=== PATIENT | male | born 1995 | race Caucasian/White ===

== ENCOUNTER 2018-02-06 09:37 | Day surgery (SDC) | payer SELFPAY ==
[2018-02-06] MEDS: Ondansetron 4 MG/2 ML SDV IVPUSH ONE ×2 (10:09→11:20)
[2018-02-06] MEDS: HYDROmorphone 1 MG/ML Syringe IVPUSH ONE (11:16)
[2018-02-06] MEDS: Lactated Ringers 1,000 ML IV ONE ×2 (11:21→14:02)
[2018-02-06] MEDS: Sodium Chloride 0.9% 10 ML Syringe FLUSH PRN ×2 (11:21→12:35)
--- NOTE | 2018-02-06 11:51 | EDM.PDOC ---
ED HPI GENERAL MEDICAL PROBLEM - General Chief Complaint: Abdominal Pain Stated Complaint: ABDOMINAL PAIN Time Seen by Provider: 02/06/18 11:02 Source of Information: Reports: Patient History Limitations: Reports: No Limitations - History of Present Illness INITIAL COMMENTS - FREE TEXT/NARRATIVE: 22-year-old male presents for evaluation and treatment of abdominal pain. Patient is in moderate distress upon my arrival to the room and is difficult to obtain a history and physical from him. He reports that the abdominal pain started around 0300 this morning. He was awake and it did not wake him up from sleep. He reports pain in the right lower quadrant. Reports associated symptoms of nausea and vomiting. He denies any diarrhea. Denies any urinary symptoms. No previous surgeries to his abdomen. Onset: Today Location: Reports: Abdomen (RLQ) Right Lower Abdominal Pain Score (Numeric/FACES): 10 - Related Data Allergies Allergy/AdvReac Type Severity Reaction Status Date / Time No Known Allergies Allergy Verified 02/06/18 09:52 Home Meds: Home Meds . [No Known Home Meds] 02/06/18 [History] Past Medical History - Past Surgical History HEENT Surgical History: Reports: Myringotomy w Tube(s) Social & Family History - Tobacco Use Smoking Status *Q: Current Every Day Smoker Years of Tobacco use: 1 Packs/Tins Daily: 1 - Caffeine Use Caffeine Use: Reports: None - Recreational Drug Use Recreational Drug Use: No ED ROS GENERAL - Review of Systems Review Of Systems: See Below GI/Abdominal: Reports: Abdominal Pain (RLQ), Nausea, Vomiting. Denies: Diarrhea : Reports: No Symptoms ED EXAM, GI/ABD - Physical Exam Exam: See Below Exam Limited By: No Limitations General Appearance: Alert, WD/WN, Moderate Distress, Thin Throat/Mouth: Normal Inspection, Normal Voice, No Airway Compromise Neck: Normal Inspection Respiratory/Chest: No Respiratory Distress, Lungs Clear, Normal Breath Sounds Cardiovascular: Normal Peripheral Pulses, Regular Rate, Rhythm, No Murmur GI/Abdominal Exam: Tender (right side of abdomen RLQ > RUQ), Other (pain with heel percussion; unable to fully examine patient due to significant pain; negative rosvings sign) Neurological: Alert, Oriented, Normal Cognition Psychiatric: Normal Affect, Anxious Skin Exam: Warm, Dry, Normal Color Course - Vital Signs Last Recorded V/S: Last Vital Signs Temp 99.2 F 02/06/18 18:30 Pulse 86 02/06/18 18:30 Resp 16 02/06/18 18:30 BP 119/68 02/06/18 18:30 Pulse Ox 98 02/06/18 18:30 - Orders/Labs/Meds Orders: Active Orders 24 hr Category Date Time Status Patient Status [ADT] Routine ADT 02/06/18 14:18 Active Communication Order [RC] ROUTINE Care 02/06/18 15:31 Active Cooling Warming Measures [RC] ASDIRECTED Care 02/06/18 15:31 Active Notify Provider [RC] ASDIRECTED Care 02/06/18 15:31 Active Oxygen Therapy [RC] ASDIRECTED Care 02/06/18 15:31 Active Pulse Oximetry [RC] ASDIRECTED Care 02/06/18 15:31 Active Vital Signs [RC] Q15M Care 02/06/18 15:31 Active Abdomen Pelvis w Cont [CT] Stat Exams 02/06/18 11:10 Taken UA W/MICROSCOPIC [URIN] Stat Lab 02/06/18 10:48 Ordered Saline Lock Insert [OM.PC] Routine Oth 02/06/18 10:51 Ordered Schedule Procedure [COMM] Stat Oth 02/06/18 14:17 Ordered Labs: Laboratory Tests 02/06/18 02/06/18 Range/Units 10:20 10:20 WBC 17.85 H (4.23-9.07) K/mm3 RBC 5.05 (4.63-6.08) M/mm3 Hgb 16.4 (13.7-17.5) gm/L Hct 45.1 (40.1-51.0) % MCV 89.3 (79.0-92.2) fl MCH 32.5 H (25.7-32.2) pg MCHC 36.4 H (32.2-35.5) g/dl RDW Std Deviation 35.8 (35.1-43.9) fL Plt Count 295 (163-337) K/mm3 MPV 10.5 (9.4-12.3) fl Neutrophils % (Manual) 81 H (40-60) % Band Neutrophils % 0 (0-10) % Lymphocytes % (Manual) 14 L (20-40) % Atypical Lymphs % 0 % Monocytes % (Manual) 4 (2-10) % Eosinophils % (Manual) 1 (0.8-7.0) % Basophils % (Manual) 0 L (0.2-1.2) Platelet Estimate Adequate RBC Morph Comment Normal Sodium 137 (136-145) mEq/L Potassium 4.3 (3.5-5.1) mEq/L Chloride 97 L (98-107) mEq/L Carbon Dioxide 23 (21-32) mEq/L Anion Gap 21.3 H (5-15) BUN 28 H (7-18) mg/dL Creatinine 1.2 (0.7-1.3) mg/dL Est Cr Clr Drug Dosing 81.22 mL/min Estimated GFR (MDRD) > 60 (>60) mL/min BUN/Creatinine Ratio 23.3 H (14-18) Glucose 133 H (74-106) mg/dL Calcium 10.5 H (8.5-10.1) mg/dL Total Bilirubin 1.9 H (0.2-1.0) mg/dL AST 37 (15-37) U/L ALT 24 (16-63) U/L Alkaline Phosphatase 86 (46-116) U/L C-Reactive Protein 1.7 H* (<1.0) mg/dL Total Protein 9.2 H (6.4-8.2) g/dl Albumin 5.3 H (3.4-5.0) g/dl Globulin 3.9 gm/dL Albumin/Globulin Ratio 1.4 (1-2) Meds: Medications Discontinued Medications Generic Name Dose Route Start Last Admin Trade Name Freq PRN Reason Stop Dose Admin Dexamethasone Confirm 02/06/18 15:07 Dexamethasone Administered 02/06/18 15:08 Dose 20 mg .ROUTE .STK-MED ONE Diatrizoate Meglum/Diatrizoate Sod 120 ml 02/06/18 11:40 02/06/18 12:35 Gastrografin 37% PO 02/06/18 11:41 90 ml ONETIME ONE Administration Fentanyl Confirm 02/06/18 14:19 Sublimaze Administered 02/06/18 14:20 Dose 250 mcg .ROUTE .STK-MED ONE Fentanyl 50 mcg 02/06/18 15:31 Sublimaze IVPUSH Q5M PRN Pain Hydromorphone HCl 1 mg 02/06/18 11:10 02/06/18 11:16 Dilaudid IVPUSH 02/06/18 11:11 1 mg ONETIME ONE Administration Hydromorphone HCl 0.5 mg 02/06/18 15:31 Dilaudid IVPUSH Q15M PRN Pain Lactated Ringer's 1,000 mls @ 999 mls/hr 02/06/18 11:11 02/06/18 11:21 Ringers, Lactated IV 02/06/18 12:11 999 mls/hr .BOLUS ONE Administration Ertapenem 1 gm/ Sodium 100 mls @ 200 mls/hr 02/06/18 13:25 02/06/18 14:02 Chloride IV 02/06/18 13:54 200 mls/hr ONETIME ONE Administration Lactated Ringer's 1,000 mls @ 150 mls/hr 02/06/18 13:30 02/06/18 14:02 Ringers, Lactated IV 02/06/18 20:09 150 mls/hr .BOLUS ONE Administration Lidocaine HCl Confirm 02/06/18 15:13 Xylocaine-Mpf 1% Administered 02/06/18 15:14 Dose 4 mls @ as directed .ROUTE .STK-MED ONE Lactated Ringer's Confirm 02/06/18 15:14 Ringers, Lactated Administered 02/06/18 15:15 Dose 1,000 mls @ as directed .ROUTE .STK-MED ONE Acetaminophen 65 mls @ 400 mls/hr 02/06/18 16:23 02/06/18 16:40 Ofirmev IV 02/06/18 16:32 400 mls/hr ONETIME ONE Administration Iopamidol 100 ml 02/06/18 11:40 02/06/18 12:34 Isovue-300 (61%) IVPUSH 02/06/18 11:41 80 ml ONETIME ONE Administration Lidocaine HCl Confirm 02/06/18 14:04 02/06/18 15:04 Xylocaine-Mpf 1% Administered 02/06/18 14:05 16 ml Dose Administration 30 ml .ROUTE .STK-MED ONE Lorazepam 0.5 mg 02/06/18 14:00 02/06/18 14:15 Ativan IVPUSH 02/06/18 14:01 0.5 mg ONETIME ONE Administration Midazolam HCl Confirm 02/06/18 14:19 Versed 1 Mg/Ml Administered 02/06/18 14:20 Dose 2 mg .ROUTE .STK-MED ONE Midazolam HCl 2 mg 02/06/18 15:31 Versed 1 Mg/Ml IVPUSH ONETIME PRN Sedation Ondansetron HCl 4 mg 02/06/18 10:04 02/06/18 10:09 Zofran IVPUSH 02/06/18 10:05 4 mg ONETIME ONE Administration Ondansetron HCl 4 mg 02/06/18 11:10 02/06/18 11:20 Zofran IVPUSH 02/06/18 11:11 4 mg ONETIME ONE Administration Ondansetron HCl Confirm 02/06/18 15:07 Zofran Administered 02/06/18 15:08 Dose 8 mg .ROUTE .STK-MED ONE Propofol Confirm 02/06/18 14:18 Diprivan 20 Ml Administered 02/06/18 14:19 Dose 200 mg .ROUTE .STK-MED ONE Rocuronium Randolph Confirm 02/06/18 14:18 Zemuron Administered 02/06/18 14:19 Dose 50 mg .ROUTE .STK-MED ONE Sodium Chloride 10 ml 02/06/18 10:51 02/06/18 11:21 Saline Flush FLUSH 10 ml ASDIRECTED PRN Administration Keep Vein Open Sodium Chloride 10 ml 02/06/18 11:40 02/06/18 12:35 Saline Flush FLUSH 10 ml ONETIME PRN Administration IV FLUSH Succinylcholine Chloride Confirm 02/06/18 14:21 Succinylcholine In Ns Pf Administered 02/06/18 14:22 Dose 100 mg .ROUTE .STK-MED ONE Sugammadex Sodium 200 mg 02/06/18 15:28 Bridion IV 02/06/18 15:29 ASDIRECTED ONE Sugammadex Sodium Confirm 02/06/18 15:32 02/06/18 15:30 Bridion Administered 02/06/18 15:33 100 mg Dose Administration 500 mg .ROUTE .STK-MED ONE - Radiology Interpretation Free Text/Narrative:: CT of the abdomen and pelvis with IV and oral contrast impression per vrad: The appendix demonstrates diffuse distention, consistent with acute appendicitis - Re-Assessments/Exams Free Text/Narrative Re-Assessment/Exam: 02/06/18 11:34 Standing orders were placed prior to me seeing the patient. White blood cell count elevated at 17. No relief with the Zofran. An additional 4 mg of Zofran was ordered along with 1 mg Dilaudid. Will obtain CT of the abdomen and pelvis with IV and oral contrast rule out appy. 02/06/18 13:[address] Lucas, surgeon juvenile correctional officer. She is in the ED for another patient. Reviewed the CT scan. Formal radiology read is still pending but does appear that he has appendicitis with a fecalith. Will need a lap appendectomy for further management. 02/06/18 14:00 Patient is very anxious. Will give 0.5 Ativan at this time. Departure - Departure Time of Disposition: 14:20 Disposition: DC/Tfer to [facility] Condition: Fair Clinical Impression: Acute appendicitis, uncomplicated - Discharge Information *PRESCRIPTION DRUG MONITORING PROGRAM REVIEWED*: No *COPY OF PRESCRIPTION DRUG MONITORING REPORT IN PATIENT ANDREIA: No - My Orders Last 24 Hours: My Active Orders 02/06/18 10:48 UA W/MICROSCOPIC [URIN] Stat 02/06/18 10:51 Saline Lock Insert [OM.PC] Routine 02/06/18 11:10 Abdomen Pelvis w Cont [CT] Stat - Assessment/Plan Last 24 Hours: My Active Orders 02/06/18 10:48 UA W/MICROSCOPIC [URIN] Stat 02/06/18 10:51 Saline Lock Insert [OM.PC] Routine 02/06/18 11:10 Abdomen Pelvis w Cont [CT] Stat
[2018-02-06] MEDS: Iopamidol 612 MG/ML 100 ML Bottle IVPUSH ONE (12:34)
[2018-02-06] MEDS: Diatrizoate Meglumine/Diatrizoate Sodium 37% 120 ML Bottle PO ONE (12:35)
[2018-02-06] MEDS: Ertapenem 1 GM in Sodium Chloride 0.9% 100 ML IV ONE (14:02)
--- NOTE | 2018-02-06 14:13 | PCM.PREANE ---
Preanesthetic Assessment - Procedure Proposed Procedure: Laparoscopic Appendectomy - Anesthesia/Transfusion/Family Hx Anesthesia History: Prior Anesthesia Without Reaction Transfusion History: No Prior Transfusion(s) - Review of Systems General: No Symptoms Pulmonary: No Symptoms Cardiovascular: No Symptoms Gastrointestinal: No Symptoms Neurological: No Symptoms Other: Reports: None - Physical Assessment NPO Status Date: 02/06/18 NPO Status Time: 08:30 Pulse: 98 O2 Sat by Pulse Oximetry: 100 Respiratory Rate: 18 Blood Pressure: 125/80 Temperature: 98 F Vital Signs: Last Vital Signs Temp 98.0 F 02/06/18 09:50 Pulse 83 02/06/18 09:50 Resp 18 02/06/18 09:50 BP 125/80 02/06/18 09:50 Pulse Ox 100 02/06/18 09:50 Height: 1.65 m Weight: 58.967 kg ASA Class: 2E Mental Status: Alert & Oriented x3 Airway Class: Mallampati = 1 Dentition: Reports: [place](s) (front incisors) Thyro-Mental Finger Breadths: 3 Mouth Opening Finger Breadths: 3 ROM/Head Extension: Full Lungs: Clear to Auscultation Cardiovascular: Regular Rate - Lab Values: Laboratory Last Values WBC 17.85 K/mm3 (4.23-9.07) H 02/06/18 10:20 RBC 5.05 M/mm3 (4.63-6.08) 02/06/18 10:20 Hgb 16.4 gm/L (13.7-17.5) 02/06/18 10:20 Hct 45.1 % (40.1-51.0) 02/06/18 10:20 MCV 89.3 fl (79.0-92.2) 02/06/18 10:20 MCH 32.5 pg (25.7-32.2) H 02/06/18 10:20 MCHC 36.4 g/dl (32.2-35.5) H 02/06/18 10:20 RDW Std Deviation 35.8 fL (35.1-43.9) 02/06/18 10:20 Plt Count 295 K/mm3 (163-337) 02/06/18 10:20 MPV 10.5 fl (9.4-12.3) 02/06/18 10:20 Neutrophils % (Manual) 81 % (40-60) H 02/06/18 10:20 Band Neutrophils % 0 % (0-10) 02/06/18 10:20 Lymphocytes % (Manual) 14 % (20-40) L 02/06/18 10:20 Atypical Lymphs % 0 % 02/06/18 10:20 Monocytes % (Manual) 4 % (2-10) 02/06/18 10:20 Eosinophils % (Manual) 1 % (0.8-7.0) 02/06/18 10:20 Basophils % (Manual) 0 (0.2-1.2) L 02/06/18 10:20 Platelet Estimate Adequate 02/06/18 10:20 RBC Morph Comment Normal 02/06/18 10:20 Sodium 137 mEq/L (136-145) 02/06/18 10:20 Potassium 4.3 mEq/L (3.5-5.1) 02/06/18 10:20 Chloride 97 mEq/L (98-107) L 02/06/18 10:20 Carbon Dioxide 23 mEq/L (21-32) 02/06/18 10:20 Anion Gap 21.3 (5-15) H 02/06/18 10:20 BUN 28 mg/dL (7-18) H 02/06/18 10:20 Creatinine 1.2 mg/dL (0.7-1.3) 02/06/18 10:20 Est Cr Clr Drug Dosing 81.22 mL/min 02/06/18 10:20 Estimated GFR (MDRD) > 60 mL/min (>60) 02/06/18 10:20 BUN/Creatinine Ratio 23.3 (14-18) H 02/06/18 10:20 Glucose 133 mg/dL (74-106) H 02/06/18 10:20 Calcium 10.5 mg/dL (8.5-10.1) H 02/06/18 10:20 Total Bilirubin 1.9 mg/dL (0.2-1.0) H 02/06/18 10:20 AST 37 U/L (15-37) 02/06/18 10:20 ALT 24 U/L (16-63) 02/06/18 10:20 Alkaline Phosphatase 86 U/L (46-116) 02/06/18 10:20 C-Reactive Protein 1.7 mg/dL (<1.0) H* 02/06/18 10:20 Total Protein 9.2 g/dl (6.4-8.2) H 02/06/18 10:20 Albumin 5.3 g/dl (3.4-5.0) H 02/06/18 10:20 Globulin 3.9 gm/dL 02/06/18 10:20 Albumin/Globulin Ratio 1.4 (1-2) 02/06/18 10:20 - Allergies Allergies/Adverse Reactions: Allergies Allergy/AdvReac Type Severity Reaction Status Date / Time No Known Allergies Allergy Verified 02/06/18 09:52 - Acknowledgements Anesthesia Type Planned: General Anesthesia Pt an Appropriate Candidate for the Planned Anesthesia: Yes Alternatives and Risks of Anesthesia Discussed w Pt/Guardian: Yes Pt/Guardian Understands and Agrees with Anesthesia Plan: Yes PreAnesthesia Questionnaire - Past Surgical History HEENT Surgical History: Reports: Myringotomy w Tube(s) - SUBSTANCE USE Smoking Status *Q: Current Every Day Smoker Recreational Drug Use History: No - HOME MEDS Home Medications: Home Meds . [No Known Home Meds] 02/06/18 [History] - CURRENT (IN HOUSE) MEDS Current Meds: Current Medications Lactated Ringer's (Ringers, Lactated) 1,000 mls @ 150 mls/hr IV .BOLUS ONE Stop: 02/06/18 20:09 Last Admin: 02/06/18 14:02 Dose: 150 mls/hr Sodium Chloride (Saline Flush) 10 ml FLUSH ASDIRECTED PRN PRN Reason: Keep Vein Open Last Admin: 02/06/18 11:21 Dose: 10 ml Sodium Chloride (Saline Flush) 10 ml FLUSH ONETIME PRN PRN Reason: IV FLUSH Last Admin: 02/06/18 12:35 Dose: 10 ml Discontinued Medications Diatrizoate Meglum/Diatrizoate Sod (Gastrografin 37%) 120 ml PO ONETIME ONE Stop: 02/06/18 11:41 Last Admin: 02/06/18 12:35 Dose: 90 ml Hydromorphone HCl (Dilaudid) 1 mg IVPUSH ONETIME ONE Stop: 02/06/18 11:11 Last Admin: 02/06/18 11:16 Dose: 1 mg Lactated Ringer's (Ringers, Lactated) 1,000 mls @ 999 mls/hr IV .BOLUS ONE Stop: 02/06/18 12:11 Last Admin: 02/06/18 11:21 Dose: 999 mls/hr Ertapenem 1 gm/ Sodium (Chloride) 100 mls @ 200 mls/hr IV ONETIME ONE Stop: 02/06/18 13:54 Last Admin: 02/06/18 14:02 Dose: 200 mls/hr Iopamidol (Isovue-300 (61%)) 100 ml IVPUSH ONETIME ONE Stop: 02/06/18 11:41 Last Admin: 02/06/18 12:34 Dose: 80 ml Lorazepam (Ativan) 0.5 mg IVPUSH ONETIME ONE Stop: 02/06/18 14:01 Ondansetron HCl (Zofran) 4 mg IVPUSH ONETIME ONE Stop: 02/06/18 10:05 Last Admin: 02/06/18 10:09 Dose: 4 mg Ondansetron HCl (Zofran) 4 mg IVPUSH ONETIME ONE Stop: 02/06/18 11:11 Last Admin: 02/06/18 11:20 Dose: 4 mg
[2018-02-06] MEDS: LORazepam 2 MG/ML SDV IVPUSH ONE (14:15)
[2018-02-06] MEDS ORDERED: Propofol 200 MG/20 ML SDV ONE (14:18)
[2018-02-06] MEDS ORDERED: Rocuronium 50 MG/5 ML Vial ONE (14:18)
[2018-02-06] MEDS ORDERED: fentaNYL 250 MCG/5 ML SDV ONE (14:19)
[2018-02-06] MEDS ORDERED: Midazolam 1 MG/ML 2 ML SDV ONE (14:19)
[2018-02-06] MEDS ORDERED: Succinylcholine/Normal Saline 100 MG/5 ML Syringe ONE (14:21)
[2018-02-06] MEDS: Lidocaine 1% 30 ML SDV ONE (15:04)
[2018-02-06] MEDS ORDERED: Dexamethasone 4 MG/ML 5 ML MDV ONE (15:07)
[2018-02-06] MEDS ORDERED: Ondansetron 4 MG/2 ML SDV ONE (15:07)
[2018-02-06] MEDS ORDERED: Lidocaine 1% 4 ML ONE (15:13)
[2018-02-06] MEDS ORDERED: Lactated Ringers 1,000 ML ONE (15:14)
[2018-02-06] MEDS ORDERED: HYDROmorphone 1 MG/ML Syringe IVPUSH PRN (15:31)
[2018-02-06] MEDS ORDERED: fentaNYL 100 MCG/2 ML SDV IVPUSH PRN (15:31)
[2018-02-06] MEDS ORDERED: Midazolam 1 MG/ML 2 ML SDV IVPUSH PRN (15:31)
--- NOTE | 2018-02-06 16:07 | PCM.POSTAN ---
POST ANESTHESIA ASSESSMENT - MENTAL STATUS Mental Status: Somnolent - VITAL SIGNS Pulse Rate: 82 SaO2: 100 Resp Rate: 18 Blood Pressure: 111/60 Temperature: 99 F - RESPIRATORY Respiratory Status: Respiratory Rate WNL - CARDIOVASCULAR CV Status: Pulse Rate WNL, Blood Pressure Stable - GASTROINTESTINAL GI Status: No Symptoms - PAIN Pain Score: 0 - POST OP HYDRATION Hydration Status: Adequate & Stable
--- NOTE | 2018-02-06 16:46 | PCM48HPAN ---
Post Anesthesia Note - EVALUATION WITHIN 48HRS OF ANESTHETIC Vital Signs in Normal Range: Yes Patient Participated in Evaluation: Yes Respiratory Function Stable: Yes Airway Patent: Yes Cardiovascular Function Stable: Yes Hydration Status Stable: Yes Pain Control Satisfactory: Yes Nausea and Vomiting Control Satisfactory: Yes Mental Status Recovered: Yes Pulse Rate: 86 SaO2: 98 Resp Rate: 18 Temperature: 99 F Blood Pressure: 113/68
--- NOTE | 2018-02-08 07:49 | CONS ---
CONSULTING PHYSICIAN: Margareth Lucas MD DATE OF CONSULTATION: 02/06/2018 CHIEF COMPLAINT: Right lower quadrant and flank pain. HISTORY OF PRESENT ILLNESS: This is a very nice 22-year-old male who about 3 o'clock this morning awoke with feeling like some vague signs of nausea. Over the course of the next several hours, it got to the point where he felt like he would vomit, but was unable to. By 7 or 8 o'clock, he had significant pain that was mostly located in the right lower quadrant. He has never had this pain before and, otherwise, states that he is healthy. ALLERGIES: None. CURRENT MEDICATIONS: None. SOCIAL HISTORY: Alcohol negative. Smoking occasional. He denies drug use. He was adopted. Of note, the patient is working at [employer] and has only been here from [place] for less than a month. PAST MEDICAL HISTORY: Denies seizures. Denies blurred or double vision. He does state that he had an eating disorder for which he is doing better than he was months ago. He denies shortness of breath or cough. He denies palpitations. He denies any prior abdominal pain. No history of hematuria, but he had a little dysuria today when he started having this right lower and flank pain. No change in his bowel habits. No joint pain or tenderness. CT scan definitely demonstrates an acute retrocecal appendicitis. WBC is 17,000 plus. PHYSICAL EXAMINATION: GENERAL: He is fairly tearful, but cooperative, quite thin. HEENT: Pupils are equal. NECK: Without mass. LUNGS: Clear. HEART: Rhythm is regular. ABDOMEN: Markedly tender with guarding in the right lower quadrant. EXTREMITIES: Ankles are free of edema, and there are no signs of bruising. IMPRESSION AND PLAN: Indeed this patient has all the signs and symptoms of acute appendicitis. I clearly discussed with him the risks and benefits of an attempt at laparoscopic appendectomy. Risks include, but not limited to bleeding, infection, heart attack, , injury to structures not intended the need for a drain, and possibility of even doing it open. Even with these risks, he wishes to proceed. I offered a second opinion and he declined. We are, therefore, going to start out by giving him some antibiotics and proceeding. LEXI /[id number]
--- NOTE | 2018-02-08 07:55 | OR ---
DATE OF OPERATION: 02/06/2018 SURGEON: Margareth Lucas MD PREOPERATIVE DIAGNOSIS: Acute retrocecal appendix. POSTOPERATIVE DIAGNOSIS: Acute retrocecal appendix. OPERATION PERFORMED: Laparoscopic appendectomy. ANESTHESIA: General anesthesia with intubation. ESTIMATED BLOOD LOSS: None. BRIEF HISTORY: This is a very pleasant 22-year-old male who is extremely thin, who arrived with signs and symptoms of acute appendicitis. We had the opportunity to discuss risks, benefits to proceed with an attempt at laparoscopic appendectomy. He agreed to proceed. DESCRIPTION OF PROCEDURE: The patient was taken to the operating room. IV Invanz had been given. A time- out was performed. The patient was intubated and the abdomen was then prepped in the usual fashion. 1% lidocaine was instilled in the infraumbilical and the suprapubic area. A small transverse incision was made in the infraumbilical area and I was able to just cut through the fascia. I grasped the fascia between 2 sterile hemostats and elevated superiorly. A ghassan was made in the fascia, I was able to advance a Veress needle. CO2 was insufflated. A 5 mm port was then advanced into the intraperitoneal cavity. This confirmed that we had a good positions. A suprapubic 12 and a 5 mm in the right upper quadrant were advanced under direct vision. We could clearly see he had acute appendicitis, which was retrocecal. I was quite pleased to say I was able to make a window at the base of the appendix. At this time, I fired the stapling device with ease. I took down the mesoappendix using multiple hemoclips successfully. The appendix was then placed in the endobag and brought up through the suprapubic incision. On inspection, there was no bleeding noted at the suprapubic port site. I irrigated with just a small amount of irrigant and could appreciate the staple line was intact and hemostasis was good. I then removed the 5 mm port under direct vision, no bleeding was noted. The camera was removed. At this time, I reapproximated the fascia using PDS in a [id number] for the suprapubic 12 and also a [id number] for the infraumbilical 5. Subcuticular closure was used with 4-0 in a continuous fashion. In the 5 mm port in the right upper quadrant, I used a 3-0 Vicryl to reapproximate the fascia. This is because he is so thin. I then closed the skin there in a subcuticular fashion. Benzoin and Steri-Strips applied. I had the opportunity to call the patient's father at [phone] to discuss the case. I explained to him that if everything goes well, I will allow him to go home today and I will follow up in my office on Thursday. He seemed pleased. MMODAL /[id number]
--- NOTE | 2018-02-08 19:39 | CT ---
CT abdomen and pelvis Technique: Multiple axial sections were obtained from above the dome of the diaphragm inferiorly through the pubic symphysis. Intravenous and oral contrast was utilized. Delayed images were obtained through the bladder. Comparison: No prior abdominal imaging. Findings: Dilated retrocecal appendix is seen. Several appendicoliths are seen within the appendix. Minimal inflammatory change is seen around the appendix. Findings are compatible with appendicitis. Visualized lung bases shows nothing acute. Liver shows no focal parenchymal abnormality. Spleen appears within normal limits. Adrenal glands show no nodule. Pancreas is within normal limits. Kidneys show symmetric contrast enhancement without hydronephrosis or mass. Gallbladder contains no calcified gallstones. Aorta shows no aneurysmal dilatation. No retroperitoneal adenopathy or mesenteric abnormalities are seen. No pelvic mass or adenopathy is seen. Delayed images shows contrast within the bladder. Bone window settings were reviewed which appear within normal limits for the patient's age. Impression: 1. Findings compatible with appendicitis within a retrocecal appendix. Diagnostic code #5
== END 2018-02-06 18:45 | disposition home or self-care (01) ==
LOC: JD.ED 09:37 → JD.SDS 14:21
PROVIDERS: ATTEND Surgery
DX: K35.3 Acute appendicitis with localized peritonitis (principal); F17.210 Nicotine dependence, cigarettes, uncomplicated
CPT/HCPCS: 00840; 36415; 74177; 74177-26; 80053; 85007; 85027; 86140; 96361; 96365; 96375; 96376; 99284; 99285-25; C9399; J0131; J0330; J1100; J1170; J1335; J2001; J2060; J2250; J2405; J2704; J3010; J7030; J7050; J7120; Q9963; Q9967